=== PATIENT | female | born 1990 | race Caucasian/White ===

== ENCOUNTER 2017-03-19 15:10 | Emergency (ER) | payer OTHER ==
[~2017-03-19] VITALS: Ht 162.6 cm; Wt 97.8 kg
[2017-03-19 15:14] VITALS: BP 126/92; PULSE 87; TEMP 36.8; O2SAT 99; Ht 162.6 cm; Wt 97.8 kg
[2017-03-19] MEDS ORDERED: CETI10TA10 PO (16:01)
[2017-03-19] MEDS ORDERED: SPR/100 PO (16:01)
[2017-03-19] MEDS ORDERED: RANI150T3 PO (16:01)
[2017-03-19] MEDS ORDERED: PROB1TAB16 PO (16:01)
[2017-03-19] MEDS ORDERED: CYAN50TA2 PO (16:01)
--- NOTE | 2017-03-20 19:45 | EMERGENCY ROOM VISIT NOTE ---
ED Visit Note First contact with patient: 15:17 Chief Complaint: I found a bat in my apartment. History of Present Illness: Ms. Anderson is a 27-year-old white female who ambulates into the ED reporting that at that was found in her apartment this morning. She reports she had not seen the bat previously. She called the apartment complex personnel and the bat was collected. The bat was then turned over to police who dropped it off to be transferred to [place] on Tuesday morning for testing of rabies. Patient reports the best of her knowledge she was not bitten but is unsure of how long the bat has been in the apartment. She was seen a local urgent care center who encouraged her to come the ED for further evaluation and care. Currently she has no complaints and denies skin eruptions, skin color changes, fevers, headaches, joint pain, upper respiratory symptoms, decreased appetite, nausea/vomiting. Review of Systems: As noted above in history of present illness. Current Medications: Medications Dose Route/Sig Max Daily Dose Days Date Category Zantac (Ranitidine HCl) 150 Mg Tab 150 Mg PO BID 03/19/17 Reported Probiotic (Probiotic Product) 1 Tab Tab 1 Tab PO DAILY 03/19/17 Reported Zyrtec (Cetirizine Hcl) 10 Mg Tab 10 Mg PO DAILY 03/19/17 Reported Vitamin B-12 (Cyanocobalamin) Unknown Strength Tab Unknown Dose PO DAILY 03/19/17 Reported Aldactone (Spironolactone) 100 Mg Tab 100 Mg PO DAILY 03/19/17 Reported Allergies to Medications: Pertussis vaccination. Social History: Patient is currently in graduate school; she feels safe in her home environment; she denies tobacco use. Physical Examination: Vital Signs: Date Time Temp Pulse Resp B/P (MAP) Pulse Ox O2 Delivery O2 Flow Rate FiO2 03/19/17 15:14 36.8 87 18 126/92 99 Room Air GENERAL: 27-year-old female in no acute distress, nontoxic-appearing, afebrile and hemodynamically stable. NEUROLOGICAL: Awake, alert and oriented to person, place and time. Answering questions appropriately and following commands. Normal gait. Good hand eye coordination. SKIN: Warm, dry and pink. No soft tissue eruptions or trauma noted. ED Course: Patient is assessed as noted above. Patient's medication list was reviewed. The bat in question was determined to be at the laboratory and to be transferred on Tuesday for testing. Patient was educated about today's findings and instructed on her treatment plan ; she verbalized understanding and agreement with this plan. Clinical Impression: Bat exposure. Possible rabies exposure. Disposition: Patient discharged home in stable condition; prior to departure she was reassessed and subjectively reported she was pain and symptom-free. Plan: Patient was given the number to the [facility] and encouraged to contact them Tuesday for results on testing if she was not called before. She was encouraged to return to the ED if she received notification that the rabies test was positive or for any new/concerning symptoms.
== END 2017-03-19 16:20 | disposition home or self-care (01) ==
LOC: C.EDB 15:12 → C.EDD 16:20
DX: Z20.3 Contact with and (suspected) exposure to rabies (principal)

== ENCOUNTER → 2017-07-26 | Outpatient (CLI) | payer BC ==
[~2017-07-26] MED LIST: CETI10TA10 PO; CYAN50TA2 PO; PROB1TAB16 PO; RANI150T3 PO; SPR/100 PO
== END | disposition home or self-care (01) ==
LOC: C.PAPS 09:42
PROVIDERS: ATTEND Obstetrics & Gynecology
DX: Z01.419 Encounter for gynecological examination (general) (routine) without abnormal findings (principal)